=== PATIENT | male | born 1970 | race Caucasian/White ===

== ENCOUNTER 2024-10-09 09:01 | Day surgery (SDC) | payer BC ==
[2024-10-08 12:35] VITALS: BMI 27.8
[2024-10-09 09:31] VITALS: RESP 18
[2024-10-09 13:03] VITALS: BP 96/54; PULSE 47; TEMP 97.1
== END 2024-10-09 11:03 | disposition home or self-care (01) ==
LOC: FASU-ENDO 09:01 → EDBD 11:15
PROVIDERS: ATTEND Internal Medicine Gastroenterology
PROC: 0DJD8ZZ Inspection of Lower Intestinal Tract, Via Natural or Artificial Opening Endoscopic (ICD-10-PCS; principal; 2024-10-09 10:13)
DX: Z12.11 Encounter for screening for malignant neoplasm of colon (principal); K64.8 Other hemorrhoids; K64.4 Residual hemorrhoidal skin tags